=== PATIENT | male | born 1975 | race Caucasian/White ===

== ENCOUNTER 2021-08-22 16:13 | Inpatient (IN) | payer OTHER ==
[~2021-08-22] VITALS: Ht 195.6 cm; Wt 143.7 kg
[~2021-08-22 16:13] MED LIST: Advil200 M1 PO; Cleocin HCl300 MG PO; HYDR1TAB94 PO; LISI20 PO; Lopressor 50 mg50 MG PO
[2021-08-22 16:54] LABS: BASOPHILS ABSOLUTE AUTO 0.01 K/mm3 (0.00-0.23); BASOPHILS PERCENT AUTO 0 % (0-2); EOSINOPHILS ABSOLUTE AUTO 0.06 K/mm3 (0.00-0.68); EOSINOPHILS PERCENT AUTO 1 % (0-6); Hematocrit 44.5 % (37.0-53.0); Hemoglobin 14.2 g/dL (13.5-17.5); IMMATURE GRAN ABSOLUTE AUTO 0.02 K/mm3 (0.00-0.10); IMMATURE GRAN PERCENT AUTO 0 % (0-1); LYMPHOCYTES ABSOLUTE AUTO 1.74 K/mm3 (0.84-5.20); LYMPHOCYTES PERCENT AUTO 21 % (21-46); MONOCYTES ABSOLUTE AUTO 0.49 K/mm3 (0.16-1.47); MONOCYTES PERCENT AUTO 6 % (4-13); Mean Corpuscular HGB 29.6 pg (26.0-34.0); Mean Corpuscular HGB Conc 31.9 g/dL (31.5-36.5); Mean Corpuscular Volume 93 fL (80-100); Mean Platelet Volume 10.1 fL (9.1-12.4); NEUTROPHILS ABSOLUTE AUTO 6.07 K/mm3 (1.96-9.15); NEUTROPHILS PERCENT AUTO 73 % (41-73); Platelet Count 207 K/mm3 (150-400); RDW Standard Deviation 51.7 fL (35.1-46.3); Red Blood Cell Count 4.79 M/mm3 (4.30-5.90); White Blood Cell Count 8.39 K/mm3 (4.00-11.30)
[2021-08-22] MEDS ORDERED: LISI20 PO (17:08)
[2021-08-22] MEDS ORDERED: AMLO5 PO (17:08)
[2021-08-22 17:30] LABS: Anion Gap 5 mmol/L (6-16); Blood Urea Nitrogen 15 mg/dL (8-24); CO2, Blood 28 mmol/L (21-32); Chloride, Blood 109 mmol/L (98-108); Glucose, Blood 123 mg/dL (70-99); Potassium, Blood 3.8 mmol/L (3.5-5.5); Sodium, Blood 142 mmol/L (136-145)
[2021-08-22 17:31] LABS: Alanine Aminotransfer (ALT/SGP 54 U/L (12-78); Albumin, Blood 3.7 g/dL (3.4-5.0); Alk Phos 78 U/L (50-136); Aspartate Aminotrans (AST/SGOT 36 U/L (12-37); Bilirubin, Total 1.3 mg/dL (0.1-1.0); Bun/Creatinine Ratio 12.9 (12.0-20.0); Calcium, Blood 9.5 mg/dL (8.5-10.1); Creatinine, Blood 1.16 mg/dL (0.60-1.20); Globulin, Blood 3.7 g/dL (2.2-4.0); Glomerular Filtration Rate >60 (60-); Total Protein, Blood 7.4 g/dL (6.4-8.2)
[2021-08-22 17:32] LABS: Troponin I 0.142 ng/mL (0.000-0.040)
[2021-08-22 20:03] LABS: International Normalized Ratio 1.08; Prothrombin Time Results 11.3 Sec (9.7-11.5)
[2021-08-22 20:44] LABS: SARS-Cov-2 (COVID-19) PCR, MMC Positive (NEGATIVE)
[2021-08-23 01:17] LABS: Troponin I 0.085 ng/mL (0.000-0.040)
[2021-08-23 04:18] LABS: BASOPHILS ABSOLUTE AUTO 0.01 K/mm3 (0.00-0.23); BASOPHILS PERCENT AUTO 0 % (0-2); EOSINOPHILS ABSOLUTE AUTO 0.12 K/mm3 (0.00-0.68); EOSINOPHILS PERCENT AUTO 2 % (0-6); Hematocrit 41.4 % (37.0-53.0); Hemoglobin 13.2 g/dL (13.5-17.5); IMMATURE GRAN ABSOLUTE AUTO 0.01 K/mm3 (0.00-0.10); IMMATURE GRAN PERCENT AUTO 0 % (0-1); LYMPHOCYTES ABSOLUTE AUTO 1.52 K/mm3 (0.84-5.20); LYMPHOCYTES PERCENT AUTO 29 % (21-46); MONOCYTES ABSOLUTE AUTO 0.44 K/mm3 (0.16-1.47); MONOCYTES PERCENT AUTO 8 % (4-13); Mean Corpuscular HGB 29.9 pg (26.0-34.0); Mean Corpuscular HGB Conc 31.9 g/dL (31.5-36.5); Mean Corpuscular Volume 94 fL (80-100); Mean Platelet Volume 11.4 fL (9.1-12.4); NEUTROPHILS ABSOLUTE AUTO 3.22 K/mm3 (1.96-9.15); NEUTROPHILS PERCENT AUTO 60 % (41-73); Platelet Count 146 K/mm3 (150-400); RDW Coefficient Variation 15.1 % (11.7-14.2); RDW Standard Deviation 52.9 fL (35.1-46.3); Red Blood Cell Count 4.42 M/mm3 (4.30-5.90); White Blood Cell Count 5.32 K/mm3 (4.00-11.30)
[2021-08-23 05:18] LABS: Alanine Aminotransfer (ALT/SGP 53 U/L (12-78); Albumin, Blood 3.2 g/dL (3.4-5.0); Albumin/Globulin Ratio 0.9 (0.8-1.8); Alk Phos 71 U/L (50-136); Anion Gap 6 mmol/L (6-16); Aspartate Aminotrans (AST/SGOT 41 U/L (12-37); Bilirubin, Total 0.9 mg/dL (0.1-1.0); Blood Urea Nitrogen 16 mg/dL (8-24); Bun/Creatinine Ratio 15.7 (12.0-20.0); CO2, Blood 26 mmol/L (21-32); Calcium, Blood 9.4 mg/dL (8.5-10.1); Chloride, Blood 109 mmol/L (98-108); Creatinine, Blood 1.02 mg/dL (0.60-1.20); Globulin, Blood 3.5 g/dL (2.2-4.0); Glomerular Filtration Rate >60 (60-); Glucose, Blood 90 mg/dL (70-99); Potassium, Blood 4.1 mmol/L (3.5-5.5); Sodium, Blood 141 mmol/L (136-145); Total Protein, Blood 6.7 g/dL (6.4-8.2)
--- NOTE | 2021-08-23 07:38 | NUR ---
SHIFT SUMMARY PATIENT IS RESTING IN BED COMFORTABLY. BED IS IN LOW POSITION. CALL LIGHT IS IN REACH THE PATIENT WAS A NEW ADMIT TO THE FLOOR. HE WAS ORIENTED TO THE FLOOW AND STAFF. NO ACUTE CHANGES DURING THE SHIFT. THE PATIENT IS STILL AFIB HEART RATE WAS RANGING FROM 100-130 BPM. NO COMPLAINTS OF PAIN. BLOOD PRESSURE WAS ELEVATED BUT TRENDED DOWN THEN WHEN BACK UP THIS MORINING. DAY SHIFT RN MADE AWARE AND SCHEDUALED BP MEDS ARE DUE THIS MORNING. PATIENT IS CURRENTLY ON HEPARINE AT 15 UNITS/KG/HR ON A FIXED WEIGHT RUNNING AT 33 ML/HR. PATIENT IS ABLE TO AMBULATE TO THE BATHROOM WITH ASSISTANCE AND ABLE TO TOLERATE WALKING TO THE BATHROOM. WILL CONTINUE TO MONITOR. REPORT WAS GIVEN TO DAY SHIFT RN.
[2021-08-23 09:34] LABS: Troponin I 0.069 ng/mL (0.000-0.040)
--- NOTE | 2021-08-23 17:43 | NUR ---
SHIFT SUMMARY PT HAS RESTED IN BED FOR THE MAJORITY OF THE DAY. PT AMBULATED VIA STAND-BY ASSIST TO THE RESTROOM MULTIPLE TIMES. PT IS ABLE TO REPOSITION SELF INDEPENDENTLY FOR COMFORT AND PRESSURE RELIEF. HEART RATE HAS RANGED FROM 90'S-130'S ON MONITOR. BLOOD PRESSURES HAVE RANGED 146-159/106-116. PT HAS MAINTAINED SPO2 >90% ON ROOM AIR. AFEBRILE. PT IS ALERT AND ORIENTED AND CALLS APPROPRIATELY. NO ACUTE CHANGES IN CONDITION.
[2021-08-24 05:13] LABS: Hematocrit 41.6 % (37.0-53.0); Hemoglobin 13.3 g/dL (13.5-17.5)
[2021-08-24 05:42] LABS: Alanine Aminotransfer (ALT/SGP 54 U/L (12-78); Albumin, Blood 3.1 g/dL (3.4-5.0); Albumin/Globulin Ratio 0.9 (0.8-1.8); Alk Phos 68 U/L (50-136); Anion Gap 5 mmol/L (6-16); Aspartate Aminotrans (AST/SGOT 36 U/L (12-37); Bilirubin, Total 0.7 mg/dL (0.1-1.0); Blood Urea Nitrogen 15 mg/dL (8-24); Bun/Creatinine Ratio 15.9 (12.0-20.0); CO2, Blood 27 mmol/L (21-32); Calcium, Blood 8.9 mg/dL (8.5-10.1); Chloride, Blood 108 mmol/L (98-108); Creatinine, Blood 0.94 mg/dL (0.60-1.20); Free Thyroxine 1.16 ng/dL (0.70-1.60); Globulin, Blood 3.5 g/dL (2.2-4.0); Glomerular Filtration Rate >60 (60-); Glucose, Blood 98 mg/dL (70-99); Potassium, Blood 3.9 mmol/L (3.5-5.5); Sodium, Blood 140 mmol/L (136-145); Total Protein, Blood 6.6 g/dL (6.4-8.2)
--- NOTE | 2021-08-24 07:45 | NUR ---
SHIFT SUMMARY PATIENT IS RESTING IN BED COMFORTABLY. BED IS IN LOW POSITION. CALL LIGHT IS IN REACH. THE PATIENT IS STILL AFIB HEART RATE WAS RANGING FROM 90-120 BPM. NO COMPLAINTS OF PAIN. BLOOD PRESSURE WAS ELEVATED THIS MORNING AND DR SCHILLING WAS NOTIFIED AND PRN HYDRALAZINE WAS ORDERED. PATIENT IS CURRENTLY ON HEPARIN AT 17 UNITS/KG/HR ON A FIXED WEIGHT RUNNING AT 37.4ML/HR. PATIENT IS ABLE TO AMBULATE TO THE BATHROOM WITH ASSISTANCE AND ABLE TO TOLERATE WALKING TO THE BATHROOM. NO COMPLAINTS OF PAIN AND NO ACUTE CHANGES DURING THE SHIFT. WILL CONTINUE TO MONITOR. REPORT WAS GIVEN TO DAY SHIFT RN.
[2021-08-24] MEDS ORDERED: XARELTO20 MG PO (16:14)
[2021-08-24] MEDS ORDERED: METO25 PO (16:14)
--- NOTE | 2021-08-24 16:45 | NUR ---
PT DISCHARGING TODAY PT REMAINS AFIB HR RANGING 80-110'S, TO START DOSE OF XARELTO TONIGHT, WILL GIVE ONE TIME DOSE FOR TONIGHT PHARMACY WONT COVER AND NEEDS PRIOR AUTHORIZATION BEFORE FILLING PRESCRIPTIONS. PT HAD TYLENOL X1 FOR THE SHIFT FOR HEAD ACHE AND WAS EFFECTIVE. REMAINS ON ROOMAIR, BP SYSTOLIC 140'S AFEBRILE. AMBULATES TO THE BATHROOM. NO OTHER ISSUES REPORTED.
--- NOTE | 2021-08-24 17:16 | NUR ---
PT DISCHARGED HOME WITH ALL BELONINGS. IVs REMOVED AND DISCHARGE EDUCATION, FOLLOW UP APPOINTMENT, AND MEDICATION LIST REVIEWED. PT VERBALIZES UNDERSTANDING AND HAS NO QUESTIONS AT THIS TIME. PT PROVIDED WITH XARELTO INFORMATION FOR POTENTIAL SAVINGS. NO OTHER DISCHARGE NEEDS IDENTIFIED AT THIS TIME.
== END 2021-08-24 17:17 | disposition home or self-care (01) | DRG 308 ==
LOC: ER 16:13 → ERHOLD 16:14 → PCU 16:14 → ERHOLD 16:14 → PCU 21:22
PROVIDERS: Emergency Medicine; Family Medicine; Physician Assistant; ADMIT Internal Medicine
DX: I48.91 Unspecified atrial fibrillation (principal); U07.1 COVID-19; E66.9 Obesity, unspecified; I11.0 Hypertensive heart disease with heart failure; I50.9 Heart failure, unspecified; Z68.35 Body mass index [BMI] 35.0-35.9, adult; Z91.14 Patient's other noncompliance with medication regimen; Z79.899 Other long term (current) drug therapy; Z28.21 Immunization not carried out because of patient refusal
CPT/HCPCS: 36415; 71046; 80053; 82550; 83735; 83880; 84439; 84443; 84484; 85014; 85018; 85025; 85520; 85610; 93005; 93010; 96374; 96375; 96376; 99285-25; A9270; C8929; G0378; J0360; J1160; J1644; Q9957; U0004

== ENCOUNTER 2021-09-13 09:19 | Inpatient (IN) | payer OTHER ==
[~2021-09-13] VITALS: Ht 195.6 cm; Wt 136.9 kg
[~2021-09-13 09:19] MED LIST changes: +AMLO5 PO; +METO25 PO; +XARELTO20 MG PO
[2021-09-13 10:03] LABS: BASOPHILS ABSOLUTE AUTO 0.02 K/mm3 (0.00-0.23); BASOPHILS PERCENT AUTO 0 % (0-2); EOSINOPHILS ABSOLUTE AUTO 0.08 K/mm3 (0.00-0.68); EOSINOPHILS PERCENT AUTO 1 % (0-6); Hematocrit 46.6 % (37.0-53.0); Hemoglobin 14.9 g/dL (13.5-17.5); IMMATURE GRAN ABSOLUTE AUTO 0.02 K/mm3 (0.00-0.10); IMMATURE GRAN PERCENT AUTO 0 % (0-1); LYMPHOCYTES ABSOLUTE AUTO 1.73 K/mm3 (0.84-5.20); LYMPHOCYTES PERCENT AUTO 22 % (21-46); MONOCYTES PERCENT AUTO 6 % (4-13); Mean Corpuscular HGB 30.2 pg (26.0-34.0); Mean Corpuscular Volume 94 fL (80-100); Mean Platelet Volume 10.6 fL (9.1-12.4); NEUTROPHILS ABSOLUTE AUTO 5.56 K/mm3 (1.96-9.15); NEUTROPHILS PERCENT AUTO 70 % (41-73); Platelet Count 211 K/mm3 (150-400); RDW Standard Deviation 48.9 fL (35.1-46.3); Red Blood Cell Count 4.94 M/mm3 (4.30-5.90); White Blood Cell Count 7.91 K/mm3 (4.00-11.30)
[2021-09-13 10:18] LABS: Alanine Aminotransfer (ALT/SGP 42 U/L (12-78); Albumin, Blood 3.3 g/dL (3.4-5.0); Albumin/Globulin Ratio 0.8 (0.8-1.8); Alk Phos 70 U/L (50-136); Anion Gap 5 mmol/L (6-16); Aspartate Aminotrans (AST/SGOT 36 U/L (12-37); Bilirubin, Direct 0.2 mg/dL (0.0-0.3); Bilirubin, Indirect 0.6 mg/dL (0.1-0.7); Bilirubin, Total 0.8 mg/dL (0.1-1.0); Blood Urea Nitrogen 21 mg/dL (8-24); Bun/Creatinine Ratio 19.6 (12.0-20.0); CO2, Blood 25 mmol/L (21-32); Calcium, Blood 8.1 mg/dL (8.5-10.1); Chloride, Blood 107 mmol/L (98-108); Creatinine, Blood 1.07 mg/dL (0.60-1.20); Glomerular Filtration Rate >60 (60-); Glucose, Blood 75 mg/dL (70-99); Magnesium, Blood 1.9 mg/dL (1.6-2.4); Potassium, Blood 4.5 mmol/L (3.5-5.5); Sodium, Blood 137 mmol/L (136-145); Total Protein, Blood 7.3 g/dL (6.4-8.2); Troponin I <0.015 ng/mL (0.000-0.040)
[2021-09-13 11:44] LABS: Influenza A, PCR NEGATIVE (NEGATIVE); Influenza B, PCR NEGATIVE (NEGATIVE); Resp Syncytial Virus, PCR NEGATIVE (NEGATIVE); SARS-Cov-2 (COVID-19) PCR, MMC NEGATIVE (NEGATIVE)
--- NOTE | 2021-09-13 18:14 | NUR ---
END OF SHIFT SUMMARY: PATIENT STILL IN AFIB, DENIES CHEST PAIN OR SOB AT REST, PATIENT HR INCREASES WITH EXERTION TO THE 160'S RECOVERS WITHIN 5-10 MINTUES, HAS BEEN RESTING AROUND 100. PATINET DENIED ANY DIZZINESS, BLOOD PRESSURE HAS BEEN FROM 130'S TO 150 SYSTOLIC AND 90 TO 110. PATIENT ASYMPTOMATIC AT THIS TIME, IS ON ANTICOUAGULANTS FROM THIS MORNING, DID NOT GIVE THIS PM DUE TO THIS. PATIENT HAS EDEMA +1 AT THE ANKLES, ALL PULSES PALPABLE. WILL CONTINUE TO MONITOR UNTIL SHIFT CHANGE.
[2021-09-14 05:09] LABS: Anion Gap 8 mmol/L (6-16); Blood Urea Nitrogen 22 mg/dL (8-24); Bun/Creatinine Ratio 20.2 (12.0-20.0); CO2, Blood 28 mmol/L (21-32); Chloride, Blood 109 mmol/L (98-108); Creatinine, Blood 1.09 mg/dL (0.60-1.20); Glomerular Filtration Rate >60 (60-); Glucose, Blood 102 mg/dL (70-99); Sodium, Blood 145 mmol/L (136-145)
--- NOTE | 2021-09-14 05:44 | NUR ---
SHIFT SUMMARY PATIENT FOUND TO BE A PLESANT MAN WHO IS A&OX4. NO CHEST PAIN OR DISCOMFORT NOTED ALL SHIFT. VSS. LITTLE HYPERTENSIVE BEFORE NIGHT TIME BP MEDS GIVEN. REMAINS AFIB ON THE MONITOR IN THE 80'S-100S AND UP TO 120'S WHEN UP IN ROOM. +1 BLE PITTING EDEMA. NO DIZZINESS OR PALPITATIONS UPON ASSESSMENT. TOLERATING REGULAR DIET WITHOUT ISSUE. UP IND IN ROOM AND TO BATHROOM. NO ISSUES VOIDING. NO ISSUES AT THIS TIME. WILL CONTINUE PLAN OF CARE UNTIL REPORT GIVEN TO JAMAL BREAUX.
--- NOTE | 2021-09-14 09:46 | NUR ---
UPDATE PHYSICIAN AT BEDSIDE THIS AM TO SEE PT. D/T PT TREMORS AND HR PT NOW BEDREST.
--- NOTE | 2021-09-14 10:15 | NUR ---
VASCULAR MANAGEMENT: PATIENT ARRIVED 09/13/2021 WITH IV PLACED IN RIGHT AC 20G. DOCUMENTING I DID NOT PLACE THIS IV.
[2021-09-14] MEDS ORDERED: METO50ER PO (16:43)
--- NOTE | 2021-09-14 17:04 | NUR ---
UPDATE ATTEMPTED TO WALK HAVE PT WALK T/O UNIT. HR INCREASED INTO 160'S. PT SYMPTOMATIC WITH SOB AND CHEST TIGHTNESS. PHYSICIAN NOTIFIED. PLAN FOR PT TO HAVE NEW METOPROLOL DOSE AND THEN DO EKG IN 30 MINUTES AFTER PT IS WALKED AROUND THE UNIT.
--- NOTE | 2021-09-14 18:43 | NUR ---
END OF SHIFT SUMMARY: PATIENT IS STILL EXPERIENCING AFIB ON ANTICOAGULANTS, HOSPITALIST CONSULTED ABOUT SEVERE SOB AND TIGHTNESS, HR160'S TO 150'S WITH ANY EXERTION . [address] SOTO OVER THE PHONE. PLEASE SEE PATIENT NPO AFTER MIDNIGHT, USES CALL LIGHT APPROPIRATELY, BP 130'S/100'S, PATIENT HAS GREAT INTAKE OF FLUIDS AND MEALS, NO EDEMA AT THIS TIME. RA, NO GI OR SKIN ISSUES AT THIS TIME.
--- NOTE | 2021-09-14 19:21 | NUR ---
UPDATE PHYSICIAN AT BEDSIDE THIS EVENING. 30 MIN AFTER PT HAD EVENING DOSE OF METOPROLOL PT WAS WALKED AROUND THE UNIT. HR REACHED 170, EKG DONE. PT SYMPTOMATIC WITH CHEST TIGHTNESS, FLUSHING OF THE FACE, SOB, FATIGUE AND DIZZINESS. PT TO BE NPO AT MIDNIGHT FOR POSSIBLE CARDIOVERSION IN AM. REPORT GIVEN TO NIGHTSHIFT RN.
--- NOTE | 2021-09-15 06:04 | NUR ---
SHIFT SUMMARY PATIENT A&OX4 AND PLESANT WITH CARE. VSS. AFIB ON THE MONITOR IN THE 90'S-LOW 100'S UP TO 120'S WITH EXERTION. NO CHEST PAIN OR PALPITATIONS WITH THIS.ELEVATED DIASTOLIC BP BUT HAS BEEN PATIENTS NORM SINCE ARRIVAL AND MD AWARE. ON RA. UP IND IN ROOM. MILD SYMPTOMS REMAIN WITH EXERTION INCLUDING CHEST TIGHTNESS AND SOB BUT EASILY RECOVERS. NO PAIN OR DISTRESS NOTED UPON ASSESSMENT. TOLERATING REG DIET AND WILL BE NPO AFTER MIDNIGHT FOR POSSIBLE CARDIOVERSION IN AM. VOIDING WELL IN BATHROOM AND UP IND IN ROOM. NO ACUTE CONCERNS AT THIS TIME. WILL CONTINUE PLAN OF CARE UNTIL REPORT GIVEN TO JAMAL BREAUX.
--- NOTE | 2021-09-15 07:22 | NUR ---
UPDATE EMBEDDED SYSTEMS DEVELOPER AT BEDSIDE. PLAN FOR A CARDIOVERSION BETWEEN [id number]. ORDERS PUT IN BY PHYSICIAN.
[2021-09-15 08:45] LABS: International Normalized Ratio 1.09; Prothrombin Time Results 11.4 Sec (9.7-11.5)
[2021-09-15 09:00] LABS: Anion Gap 6 mmol/L (6-16); Blood Urea Nitrogen 20 mg/dL (8-24); Bun/Creatinine Ratio 19.6 (12.0-20.0); CO2, Blood 31 mmol/L (21-32); Calcium, Blood 9.2 mg/dL (8.5-10.1); Chloride, Blood 106 mmol/L (98-108); Creatinine, Blood 1.02 mg/dL (0.60-1.20); Glomerular Filtration Rate >60 (60-); Glucose, Blood 97 mg/dL (70-99); Potassium, Blood 3.8 mmol/L (3.5-5.5); Sodium, Blood 143 mmol/L (136-145)
--- NOTE | 2021-09-15 11:35 | NUR ---
1045 room is set up and ready for ÓSCAR/possible cardioversion. anibal Del Real here. 1050 Dr. Tamez arrived to PCU 11. RNs Mariangel Harrell and Sona Cheema in room, as well as 3 nursing students. Consent on chart in room, verified pt's name and date of and procedure to be done today. 1054 RT Rebeca Clayton present, pt put on O2 n.c. Suction is at pt's head. Pt gargled 1055 Pt was given 2 sprays of hurricane at Dr. Tamez direction 1056 1 mg versed and 50 mg fentanyl administered 1059 1 mg Versed given, pt's eyes are still open, RR 16/min. 1101 1 mg versed given. RR 16 spo2 98% 1102 transducer introduced, pt gagging, unable to advance. 1103 25 mg fentanyl give, transducer reattempted, unable to advance due to pt gagging. 1104 1 mg versed given. 1105 transducer attempted to introduce 1106 attempted to introduce transducer 1110 RR 10-12 spo2 95%. Conklin aborted; Dr Tamez got call from ED physician that there was a possible STEMI in the ED. Pt in recovery in PCU 11. 1120 pt is groggy, but arousable. Explained that procedure had to be cancelled due to emergency that international logistics analyst needed to go to in ED. 1130 Pt is awake, sleepy, and asking questions.
--- NOTE | 2021-09-15 11:40 | NUR ---
CARDIOVERSION/ÓSCAR ATTEMPT AT BEDSIDE WITH STEAM OVEN OPERATOR, ELECTRIC METER SETTER, RT, CRIMINOLOGY PROFESSOR AND RN STUDENTS. PT MEDICATED FOR MODERATE SEDATION, SEE EMAR. DURING ATTEMPT VSS. PT PLACED ON OXYGENAT 2 L TO MAINTAIN O2 SATURATIONS ABOVE 94%. DURING ATTEMPT STEAM OVEN OPERATOR CALLED INTO ED FOR EMERGENCY. WILL CONT TO MONITOR PT. PT'S UPDATED.
--- NOTE | 2021-09-15 18:47 | NUR ---
SHIFT SUMMARY PT ALERT AND ORIENTED X 4. IND IN ROOM. VITAL SIGNS STABLE. BP STABLE. NO CP. PT REPORTS CHEST PRESSURE WITH AMBULATION, PHYSICIAN AWARE. CARDIOLOGY ATTEMPTED TO PERFORM CARDIOVERSION W/ÓSCAR TWICE 09/15. WOMEN'S BASKETBALL COACH AND FLOAT RN IN ROOMD DURING SECOND PROCEDURE. VITAL SIGNS STABLE DURING PROCEDURE ATTEMPT. D/T DIFFICULTY WITH SEDATION PT TO HAVE PROCEDURE TOMORROW 09/16 IN HC. AT BEDSIDE AND UPDATED DURING SHIFT. PT TO BE NPO AT MIDNIGHT. OXYGEN SATURATION MAINTAINED ABOVE 92% ON RA.WILL CONT TO MONITOR UNTIL REPORT GIVEN TO NIGHTSHIFT RN.
--- NOTE | 2021-09-16 04:21 | NUR ---
PATIENT ALERT AND ORIENTATED ABLE TO MAKE NEEDS KNOWN, CALLS APPROPRIATELY, NOTHING BY MOUTHE SINCE MIDNIGHT AWAITING PROCEDURES SCHEDULED ÓSCAR THIS MORNING, NO COMPLAINTS OF PAIN, HR RANGING 61-130'S THIS EVENING AFIB, BLOOD PRESSURE BEEN STABLE WITH ELEVATED DIASTOLIC> 90, WILL CONTINUE TO MONITOR
--- NOTE | 2021-09-16 16:10 | NUR ---
TAKEN BY [facility] RN FOR ÓSCAR WITH ANESTHESIA.
--- NOTE | 2021-09-16 16:25 | NUR ---
PATIENT BROUGHT TO THE PROCEDURE ROOM FOR AN INPATIENT ÓSCAR/DCCV. DR. SU PRESENT.
--- NOTE | 2021-09-16 17:00 | NUR ---
UNABLE TO INSERT ÓSCAR PROBE WITH ANESTHESIA IN USE. PROCEDURE ABORTED. PATIENT AWAKE AND CONTINUE TO MONITOR. VVS. NO PAIN NOTED. WILL RETURN TO ROOM. REPORT CALLED TO RN. AMIODARONE BOLUS AND GTT ORDERED AND OBTAINED FROM THE PHARMACY AND REVEIWED WITH THE BEDSIDE RN.
--- NOTE | 2021-09-16 18:15 | NUR ---
SHIFT SUMMARY; ASSUMED CARE AT 0700, REPORT FROM BRANDAN. A/Mahad/JOSE DURING SHIFT. DENIES CP OR SOB. INDEPENDANT IN ROOM, AFIB DURING SHIFT WITH RATE 90-120'S. RATE INCREASES WITH AMBULATION. BED CHANGE TODAY, TAKEN TO LAWNMOWER MECHANIC FOR ÓSCAR WITH PROPOFOL. RETURNED AT APPROX 1700, UNSUCCESSFUL ÓSCAR, PLAN TO RESCHEDULE FOR TOMORROW WITH O.R. WITH INTUBATION FOR REATTEMPT ÓSCAR. NPO AFTER MIDNIGHT. WILL CONTINUE TO MONITOR AND TREAT UNTIL CHANGE OF SHIFT.
--- NOTE | 2021-09-17 03:10 | NUR ---
NOTED RLE NO PULSES WITH DOPPLER, DR. SAENZ AWARE, NO ORDERS AT THIS TIME AND CONTINUE TO MONITOR.
[2021-09-17 04:34] LABS: Anion Gap 5 mmol/L (6-16); Blood Urea Nitrogen 16 mg/dL (8-24); Bun/Creatinine Ratio 15.4 (12.0-20.0); CO2, Blood 31 mmol/L (21-32); Chloride, Blood 106 mmol/L (98-108); Creatinine, Blood 1.04 mg/dL (0.60-1.20); Glomerular Filtration Rate >60 (60-); Glucose, Blood 97 mg/dL (70-99); Potassium, Blood 4.1 mmol/L (3.5-5.5); Sodium, Blood 142 mmol/L (136-145)
--- NOTE | 2021-09-17 05:45 | NUR ---
PATIENT HAD NO ACUTE CHANGES OVERNIGHT AMIO GTT RUNNING, DECREASED BY 1/2 AT 2345 VITALS REMAINED STABLE THROUGHOUT NIGHT.
--- NOTE | 2021-09-17 18:15 | NUR ---
VSS. AFEBRILE. NO C/O PAIN. AUO. NO BM. DIET ADVANCED. ÓSCAR COMPLETED- SEE NOTES, REMAINS IN SR, AMIO GTT DC'D. TENTATIVE ECHO AND EKG SCHEDULED 09/18, WITH POSSIBLE D/C HOME. FREQUENT ROUNDS TO ENSURE PT SAFETY. PT IN NO APPARENT DISTRESS AT THIS TIME. WILL CONTINUE TO MONITOR UNTIL TRANSFER OF CARE TO ONCOMING RN.
--- NOTE | 2021-09-17 18:19 | NUR ---
09/17/211818 Willy Solomon PATIENT INTUBATED IN OR 4 FOR ÓSCAR WITH CITY COMPTROLLER, ANESTHESIOLOGIST DR SHAY. DR CLEMONS CONSULTED TO PERFORM EGD DUE TO DIFFICULTY PASSING ÓSCAR SCOPE. SCOPE CREW CALLED TO TO ASSIST DR CLEMONS.
--- NOTE | 2021-09-18 04:30 | NUR ---
PATIENT ALERT AND ORIENTATED, NO EVENTS OVERNIGHT, NO COMPLAINS OF PAIN, TELEMETRY NOTED 11 BEATS OF VTACH TONIGHT, INFORMATION IS IN THE CHART.
--- NOTE | 2021-09-18 12:31 | NUR ---
ASSUMED CARE NOTE: ASSUMED CARE OF PT AT 1135, BED SIDE REPORT GIVE, PT TRANSFERED TO ICU FROM PCU 11. PT ALERT AND ORIENTEDX3. PT DENIES CP, DIZZINESS. PT HAVING FREQUENT PVC'S. ISOPRO DRIP STARTED, PT ON DOWEL STICKER OPERATOR. AT BEDSIDE, ISOPRO DRIP TITRATED TO MAX DOSE 20MCG/MIN, GOAL HR 110-150, PER . WILL REMAIN ON THIS DRIP FOR 24 HOURS. CURRENT HR 127, QTc 0.53. LESS PVC'S NOTED SINCE ISOPRO WAS INITIATED. PT IS ASYMPTOMATIC.SBP 140'S. PT SITTING UP HAVING LUNCH AT THIS TIME.
--- NOTE | 2021-09-18 15:30 | NUR ---
CALLED REGARDING HR, CURRENT HR BETWEEN 80-90, ON 20MCG/MIN OF ISUPREL, UNABLE TO HIT TARGET RATE OF 110-150. ORDERS GIVEN TO START MAG DRIP AT 3MG/MIN, AND START EPI DRIP. AT BEDSIDE, ORDERS TO HOLD MAG DRIP AND EPI DRIP . MAG DRIP WILL BE RESTARTED POST TEMP PACEMAKER PLACEMENT. ORDERS TO TITRATE ISUPREL DRIP TO 25MCG/MIN.
[2021-09-18 15:41] LABS: Digoxin (Lanoxin) 0.44 ug/mL (0.80-2.00)
--- NOTE | 2021-09-18 17:45 | NUR ---
UPDATE/SHIFT SUMMARY: SEE PREVIOUS NOTES PT REAMAINS ALERT AND ORIENTEDX3. PT HAS DENIED CHEST PAIN T/O SHIFT. PT TAKEN TO TIMEKEEPER FOR TEMP PACEMAKER AT 1554, RETURNED TO THE ICU AT 1653. TEMP PACEMAKER RATE 120, mA 5, SENSE 4. ORDERED FOR PT TO BE PLACED ON MAG DRIP WILL RECHECK MAG AT 1800. IF PT'S OWN RATE TAKES OVER PACER RATE, NURSING STAFF IS TO OVERRIDE HIS RATE SO THAT HE REMAINS 100% RATE, AND CONTACT . PT IS CURRENTLY 100% PACED, RATE 120, CAPTURE OBTAINED ON MONITOR. PT PLACED ON 2L OF 02 VIA NC DUE TO PT DESATURATING TO 87% WHILE SLEEPING. PT STATES HE WAS TOLD HE NEEDED A SLEEP STUDY IN THE PAST, HOWEVER WAS UNABLE TO GET IT DURING COVID. PT DENIES ANY SOB, PAIN. PT BP HAS REMAINS STABLE. PT USING URINAL AT BEDSIDE 600ML FRANCIE COLORED URINE NOTED. PT ATE 100% OF LUNCH, DECLINED DINNER. WILL CONTINUE TO MONITOR PT UNTIL REPORT IS GIVEN TO ONCOMING SHIFT.
--- NOTE | 2021-09-18 18:14 | NUR ---
RATE CHANGED TO 110 PER , SENSE 7.0, mA REMAINS AT 5, CAPTURE OBTAINED 110 CURRENT RATE
--- NOTE | 2021-09-18 19:30 | NUR ---
ASSUMED CARE PATIENT LYING IN BED AWAKE AND ALERT WATCHING TELEVISION. GREETS STAFF UPON ENTERING ROOM. TRANSVENOUS PACER SET TO RATE 110, mA OF 5, SENSITIVITY OF 7; 100% VENTRICULARLY PACED. MAG SULFATE @ 3MCG/MIN AND NS TKO INF TO DEEPIKA POWERGLIDE. REUBEN POWERGLIDE SALINE LOCKED. URINAL AND CELL PHONE ON BEDSIDE TABLE. BEDSIDE REPORT COMPLETED W/ JAMAL BREAUX.
--- NOTE | 2021-09-18 19:45 | NUR ---
MAG RESULT MAG RESULT OF 2.5 RECIEVED. CALLED AND REPORTED RESULT TO DR. SU; ORDERS OBTAINED FOR REPEAT MAG LAB @ 2200 AND AM LABS CONSISTING OF MAG, CBC, AND BMP.
--- NOTE | 2021-09-18 22:54 | NUR ---
MAG 2.6/ PACER SETTINGS MAG RESULT OF 2.[address] SU. NO NEW ORDERS GIVEN. VERIFIED PACER SETTINGS W/ DR. SU AND NOTIFIED HIM OF EXTRA PACING SPIKES W/ NO SUBSEQUENT QRS. ORDERS OBTAINED TO TURN SENSITIVITY DOWN TO 4 FROM 7. RATE 110 AND OUTPUT 5 REMAINS THE SAME. PATIENT IS STILL 100% PACED.
--- NOTE | 2021-09-19 01:41 | NUR ---
APNEIC PERIODS DURING SLEEP WHILE SLEEPING THE PATIENT EXPERIENCED PERIODIC EPISODES OF APNEA. SPO2 WOULD DROP TO MID 80'S THEN RETURN TO MID TO HIGH 90'S. ACCORDING TO PATIENT THIS HAPPENS AT BASELINE WELL AND IS AWAITING FOR A SLEEP STUDY TO BE ORDERED. O2 VIA NC INCREASED TO 4.5LPM.
[2021-09-19 03:50] LABS: BASOPHILS ABSOLUTE AUTO 0.01 K/mm3 (0.00-0.23); BASOPHILS PERCENT AUTO 0 % (0-2); EOSINOPHILS ABSOLUTE AUTO 0.04 K/mm3 (0.00-0.68); EOSINOPHILS PERCENT AUTO 0 % (0-6); Hematocrit 41.6 % (37.0-53.0); Hemoglobin 13.5 g/dL (13.5-17.5); IMMATURE GRAN ABSOLUTE AUTO 0.03 K/mm3 (0.00-0.10); IMMATURE GRAN PERCENT AUTO 0 % (0-1); LYMPHOCYTES ABSOLUTE AUTO 1.47 K/mm3 (0.84-5.20); LYMPHOCYTES PERCENT AUTO 15 % (21-46); MONOCYTES ABSOLUTE AUTO 0.67 K/mm3 (0.16-1.47); MONOCYTES PERCENT AUTO 7 % (4-13); Mean Corpuscular HGB 29.6 pg (26.0-34.0); Mean Corpuscular HGB Conc 32.5 g/dL (31.5-36.5); Mean Corpuscular Volume 91 fL (80-100); Mean Platelet Volume 9.6 fL (9.1-12.4); NEUTROPHILS ABSOLUTE AUTO 7.52 K/mm3 (1.96-9.15); NEUTROPHILS PERCENT AUTO 77 % (41-73); Platelet Count 195 K/mm3 (150-400); RDW Coefficient Variation 13.7 % (11.7-14.2); RDW Standard Deviation 46.7 fL (35.1-46.3); Red Blood Cell Count 4.56 M/mm3 (4.30-5.90); White Blood Cell Count 9.74 K/mm3 (4.00-11.30)
[2021-09-19 04:21] LABS: Anion Gap 4 mmol/L (6-16); Blood Urea Nitrogen 14 mg/dL (8-24); Bun/Creatinine Ratio 14.4 (12.0-20.0); CO2, Blood 32 mmol/L (21-32); Calcium, Blood 8.6 mg/dL (8.5-10.1); Chloride, Blood 107 mmol/L (98-108); Creatinine, Blood 0.97 mg/dL (0.60-1.20); Glomerular Filtration Rate >60 (60-); Glucose, Blood 103 mg/dL (70-99); Magnesium, Blood 2.4 mg/dL (1.6-2.4); Potassium, Blood 3.8 mmol/L (3.5-5.5); Sodium, Blood 143 mmol/L (136-145)
--- NOTE | 2021-09-19 06:04 | NUR ---
SHIFT SUMMARY PATIENT HAD ABNORMAL CAPTURING OF PACEMAKER AT BEGINNING OF SHIFT W/ ACTIVITY. CALL MADE TO DR. SU AND TURNED SENSITIVITY DOWN TO 4 FROM 7. AFTER THIS ADJUSTMENT TRANSVENOUS PACER CAPTURED APPROPRIATELY W/ 100% PACING AND NO ECTOPIC BEATS. MAGNESIUM STILL INF @ 3MCG/MIN AND NS TKO INTO DEEPIKA POWERGLIDE; REUBEN POWERGLIDE SALINE LOCKED. DISCUSSED PACER PARAMETERS W/ DR. SU; SEE NURSE NOTE AND NURSE NOTIFY. NO OTHER MAJOR CHANGES DURING SHIFT.
--- NOTE | 2021-09-19 09:20 | NUR ---
ASSUMED CARE / DR SU: REPORT RECEIVED FROM IESHA Gregorio & MISAEL W, RNs. ASSUMED CARE OF THIS PT AT APPROX 0700. ON ASSESSMENT, THE PT IS AWAKE, A&O TO ALL. DENIES PAIN. LS ARE DIM IN BASES, PT ON 2L NC W/ O2 SATS > 95%. MONITOR SHOWS 100% V-PACED RHYTHM W/ TV PACER IN PLACE TO [facility]. TV PACER SETTINGS: RATE 110, MA 5, SENSITIVITY 4. HTN PRIOR TO SCHEDULED AM MEDS. PT HAS NO GI COMPLAINTS, TOLERATING PO INTAKE WELL. VOIDS W/O DIFFICULTY USING URINAL INDEPENDENTLY. SKIN CONDITION OVERALL CDI, Q2H REPOSITIONING TO MAINTAIN SKIN INTEGRITY. DR SU AT BEDSIDE THIS AM TO EVAL PT. HE STS HE WOULD LIKE TO TURN OFF THE PACER & COMPLETED AN EKG TO SEE THE PT's UNDERLYING RHYTHM. THIS HAS BEEN COMPLETED & THE PT's UNDERLYING RHYTHM IS AFIB W/ HR 70-80s. TV PACING HAS BEEN RESUMED W/ PRIOR SETTINGS & THE PT IS TOLERATING WELL. DR SU WOULD LIKE TO ATTEMPT THIS AGAIN AT APPROX 1700 TONIGHT & HAS ADDED PT's HOME DOSE OF NORVASC TO START THIS AM FOR HTN MANAGEMENT. WILL CONTINUE TO MONITOR & UPDATE NEEDED.
--- NOTE | 2021-09-19 16:35 | NUR ---
DR SU: PROVIDER AT BEDSIDE THIS EVENING. EKG COMPLETED WHILE PROVIDER TURNS OFF TV PACER. EKG SHOWS PT IN AFIB W/ RVR, HR 117 BPM. QTc DECREASED TO 485 MS - SEE CHART. BASED ON THIS READING, THE PROVIDER HAS TURNED THE TV PACER RATE DOWN TO 30. ORDERS PLACED FOR METOPROLOL & PROVIDER WOULD LIKE ANOTHER EKG TO BE COMPLETED WHEN HE COMES TO SEE THE PT TOMORROW AM.
--- NOTE | 2021-09-19 17:20 | NUR ---
SHIFT SUMMARY: NO ACUTE CHANGES SINCE PRIOR UPDATES. PT STS FEELING "A LITTLE BETTER" W/ TV PACER RATE DECREASED. LS ARE DIM IN BASES, 2L NC IN USE W/ O2 SATS > 95%. MONITOR SHOWS AFIB W/ HR 80-100s, HTN IMPROVED THIS EVENING. PT HAS NO GI COMPLAINTS, IS TOLERATING PO INTAKE WELL. PT VOIDS USING URINAL W/O DIFFICULTY. SKIN CONDITION OVERALL CDI, PT REPOSITIONS SELF FOR COMFORT. TV PACER SITE TO [facility] IS WNL; NO REDNESS OR INFLAMMATION NOTED, DRESSING CDI. WILL CONTINUE TO MONITOR & REPORT OFF TO ONCOMING RN.
--- NOTE | 2021-09-19 19:30 | NUR ---
ASSUMED CARE PATIENT LYING IN BED AWAKE AND WATCHING TV. TRACKS TO SOUND AND GREETS STAFF UPON ENTERING ROOM. CELL PHONE AND URINAL ON BEDSIDE TABLE. TRANSVENOUS PACER TO RT IJ SET AT RATE 30, mA 5, SENSITIVITY 4; CURRENTLY IN AFIB W/ RATE 60'S-90'S. 3LPM VIA NC IN PLACE W/ SPO2 HIGH 90'S-100%. MAG SULFATE @ 3.5MCG/HR AND NS TKO INTO DEEPIKA POWERGLIDE; REUBEN POWERGLIDE SALINE LOCKED. REPORT COMPLETED W/ DAYSHIFT RN.
--- NOTE | 2021-09-20 06:37 | NUR ---
SHIFT SUMMARY NO MAJOR CHANGES DURING SHIFT. PATIENT BECAME TACHYCARDIC W/ RATE IN 120'S-130'S WHEN HE USES URINAL OR REPOSITIONS, OTHERWISE RATE STAYED 60'S-90'S W/ NO PACING. TV PACER SETTINGS STILL @ RATE 30, mA 5, SENSITIVITY 4. HTN COVERED W/ 1 DOSE HYDRALAZINE DURING SHIFT. PATIENT HAD 950ML OF URINE OUT, NO BM DURING SHIFT.
--- NOTE | 2021-09-20 07:21 | NUR ---
DR SU: PROVIDER AT BEDSIDE THIS AM TO EVAL PT. EKG COMPLETED & PLACED ON CHART. BASED ON THIS EKG READING & THE PT HAVING NO ARRHYTHMIAS THROUGH THE NIGHT, ASIDE FROM TACHYCARDIA W/ HR INCREASED TO 120s WHILE URINATING, HE HAS DECIDED TO TAKE THE TV PACER OUT. THE PLAN IS FOR THE SHEATH TO REMAIN IN PLACE & AFTER EKG AT NOON TODAY, THE SHEATH MAY BE PULLED THIS AFTERNOON AT PROVIDER DISCRETION. HE PLANS TO D/C THE MAGNESIUM DRIP & TX THE PT TO PCU STATUS ALSO. TV PACER TO RIJ REMOVED BY PROVIDER AT APPROX 0715. SHEATH REMAINS IN PLACE & THIS RN DRESSED SITE W/ TEGADERM CHG. VSS.
--- NOTE | 2021-09-20 07:30 | NUR ---
ASSUMED CARE: REPORT RECEIVED FROM IESHA Garza, RNs. ASSUMED CARE OF THIS PT AT APPROX 0700. ON ASSESSMENT, THE PT IS AWAKE, A&O TO ALL. HE DENIES PAIN CURRENTLY. LS DIM, PT ON RA W/ O2 SATS > 92%. MONITOR SHOWS AFIB W/ HR 80-100s ON AVG, INCREASED TO 120-130s W/ EXERTION. SHEATH REMAINS IN PLACE TO RIJ, DRESSING CDI. THE PT HAS NO GI COMPLAINTS & IS TOLERATING PO INTAKE WELL. HE VOIDS W/O DIFFICULTY USING THE URINAL. SKIN CONDITION OVERALL CDI & PT ABLE TO REPOSITION SELF FOR COMFORT, ASKS FOR ASSISTANCE APPROPRIATELY. WILL CONTINUE TO MONITOR & UPDATE NEEDED.
--- NOTE | 2021-09-20 18:36 | NUR ---
SHIFT SUMMARY / DR SU: PT REMAINS A&O, PLEASANT & COOPERATIVE W/ CARE. LS DIM IN BASES, PT ON RA T/O SHIFT W/ O2 SATS MAINTAINING > 92%. PT DENIES SOB. MONITOR SHOWS AFIB W/ HR 80-100s ON AVG, TACHYCARDIA UP TO 160s W/ EXERTION. NO GI COMPLAINTS, TOLERATING PO INTAKE WELL. VOIDS W/O DIFFICULTY USING THE URINAL INDEPENDENTLY. SKIN CONDITION OVERALL INTACT, PT REPOSITIONS SELF W/O DIFFICULTY FOR COMFORT. DR SU AT BEDSIDE THIS EVENING TO EVAL PT. HE STS HE WOULD LIKE TO DISCHARGE THE PT HOME. TACHYCARDIA W/ HR INCREASED TO 160-170s WHILE PT WORKING W/ PHYSICAL THERAPY HAS BEEN DISCUSSED. METOPROLOL SUCCINATE DOSE INCREASED TO 100 MG BID W/ FIRST DOSE GIVEN NOW. IF THE PT's HR IMPROVES & HE IS ABLE TO AMBULATE W/O UNCONTROLLED TACHYCARDIA, HE MAY STILL BE ABLE TO GO HOME TONIGHT. APPROX 20 MINS AFTER METOPROLOL GIVEN, PT's RESTING HR DECREASED TO 90-100 BPM. PT DANGLES AT BEDSIDE & IS ABLE TO AMBULATE W/O DIFFICULTY. HR INCREASED TO 130-160s AT THAT TIME. DR SU AT BEDSIDE DURING THIS TIME & STS TO GIVE THE MEDICATION APPROX 20 MORE MINUTES TO WORK. AT THAT TIME, AMBULATE THE PT AGAIN TO ASSESS FOR TACHYCARDIA. IF THE PT REMAINS TACHYCARDIC W/ EXERTION, THE PROVIDER PLANS TO ADD CARDIZEM TO HIS MEDICATIONS. IN THE MEANTIME, HE WOULD LIKE THE VENOUS SHEATH TO THE PT's RIJ TO BE REMOVED. DONYA Aggarwal RN & GRAYSON Rabago RN, AT BEDSIDE FOR SHEATH REMOVAL. THIS RN HAS UPDATED THE PT's DISCHARGE INTERVENTION W/ FOLLOW-UP APPOINTMENTS REQUESTED BY DR SU. ONCE DISCHARGE IS CONFIRMED, HOSPITALIST SERVICE WILL BE CONTACTED TO PLACE ORDERS. WILL CONTINUE TO MONITOR & REPORT OFF TO ONCOMING RN.
--- NOTE | 2021-09-20 19:38 | NUR ---
ASSUMED CARE PATIENT LYING IN BED AWAKE AND WATCHING TV. PATIENT SITTING AT BEDSIDE. CURRENTLY PATIENT IS ON ROOM AIR W/ SPO2 MID 90'S. RHYTHM A-FIB W/ RATE 90'S-120'S AT REST. BP HIGH 150'S/90'S-100'S. POWER GLIDE IN DALE UPPER ARMS SALINE LOCKED. URINAL AND CELL PHONE AT BEDSIDE. REPORT COMPLETED W/ DAYSHIFT NAMITA.
--- NOTE | 2021-09-20 20:40 | NUR ---
DOCTOR GEORGES GIVEN UPDATE ON PATIENTS HEART RATE. AT REST AFIB 84-90. WHEN UP TO TOILET FOR BM, AND AMBULATE IN ROOM HEART RATE UP TO 164, NO C/O CHEST PAIN WHEN UP. PLAN TO CONTINUE TO MONITOR T/O NIGHT.
--- NOTE | 2021-09-21 05:57 | NUR ---
SHIFT SUMMARY PATIENT SLEPT THROUGH MOST OF SHIFT. WHEN HE FELL ASLEEP HE HAD A PERIOD OF APNEA THAT HE HAS AT BASELINE, SPO2 DECREASED FROM MID TO HIGH 90'S TO MID 80'S ON ROOM AIR. 3LPM NC PLACED ON PATIENT W/ SPO2 INCREASED TO HIGH 90'S. CARDIZEM 120MG STARTED AT BEGINNING OF SHIFT; NOTIFIED DR. SU OF NO IMPROVEMENT IN EXERTIONAL HR-SEE NURSE NOTE. CARDIZEM INCREASED TO 180MG BID. DURING SHIFT RESTING HR 70'S-90'S; WITH WALKING TO TOILET INCREASED TO 170'S @ THE HIGHEST, USUALLY 140'S-160'S. TRANSVENOUS PACER REMOVAL SITE W/ OPSITE FREE OF BLEEDING AND HEMATOMA. SHEATH STILL IN PLACE. NO OTHER CHANGES DURING SHIFT.
--- NOTE | 2021-09-21 09:07 | NUR ---
pt ambulated about 30 min after cardizem, metoprolol and HR initially jumped to 150, but then sustained 100-110s mainly.
--- NOTE | 2021-09-21 10:04 | NUR ---
Pt ambulated again about 1.5hrs after AM cardizem and metoprolol. HR increased to 120-130 initailly when standing. After about 30 seconds remained between 100-110 when ambulating in room.
--- NOTE | 2021-09-21 12:29 | NUR ---
Pt ambulated in room again, sustained 100-110s with a few spikes to 120-130. At rest HR is 70-80s after sitting for 1 minute.
[2021-09-21] MEDS ORDERED: METO100ER PO (14:54)
[2021-09-21] MEDS ORDERED: DILT180 PO (14:58)
--- NOTE | 2021-09-21 16:09 | NUR ---
shift note/ d/c note: Pt is A&O and pleasant with cares. Tele: afib 70-80s at rest and 100-110s with activity. At times can jump to 120-130s briefly. D/c meds gone over in detail with pt. Meds faxed to [facility] in [place]. Bilateral powerglides removed. provided d/c ride.
== END 2021-09-21 16:29 | disposition home or self-care (01) | DRG 260 ==
LOC: ER 09:19 → PCU 09:20 → ERHOLD 09:20 → PCU 14:33 → ICUW 09-18 11:19
PROVIDERS: Family Medicine; Internal Medicine Cardiovascular Disease; Internal Medicine Gastroenterology; Nurse Practitioner Acute Care; Student in an Organized Health Care Education/Training Program; ADMIT Family Medicine
PROC: 0D718ZZ Dilation of Upper Esophagus, Via Natural or Artificial Opening Endoscopic (ICD-10-PCS; 2021-09-17 12:00)
PROC: 5A1223Z Performance of Cardiac Pacing, Continuous (ICD-10-PCS; principal; 2021-09-18)
PROC: 5A2204Z Restoration of Cardiac Rhythm, Single (ICD-10-PCS; 2021-09-18)
PROC: 02HK3JZ Insertion of Pacemaker Lead into Right Ventricle, Percutaneous Approach (ICD-10-PCS; 2021-09-18)
DX: I11.0 Hypertensive heart disease with heart failure (principal); I50.23 Acute on chronic systolic (congestive) heart failure; I48.20 Chronic atrial fibrillation, unspecified; I47.2 Ventricular tachycardia; I20.0 Unstable angina; I34.0 Nonrheumatic mitral (valve) insufficiency; Z20.822 Contact with and (suspected) exposure to COVID-19; E66.01 Morbid (severe) obesity due to excess calories; F17.290 Nicotine dependence, other tobacco product, uncomplicated; I42.8 Other cardiomyopathies; I47.9 Paroxysmal tachycardia, unspecified; Z91.14 Patient's other noncompliance with medication regimen; I45.81 Long QT syndrome; T44.7X5A Adverse effect of beta-adrenoreceptor antagonists, initial encounter; Z79.899 Other long term (current) drug therapy; Z68.35 Body mass index [BMI] 35.0-35.9, adult; K22.2 Esophageal obstruction
CPT/HCPCS: 0241U; 33210; 36415; 71046; 76937; 80048; 80076; 80162; 83735; 83880; 84443; 84484; 85025; 85610; 93005; 93010; 93312; 93325; 94660; 94760; 94762; 96365; 97110; 97162; 97166; 97530; 97535; 99152; 99153; 99285-25; A9270; C1751; C1769; C1894; C8929; G0378; J0282; J0360; J1100; J1160; J1644; J2250; J2405; J2704; J3010; J3475; J7030; J7040; J7050; J7060; J7120; Q9957

== ENCOUNTER → 2023-07-16 | Outpatient (CLI) | payer OTHER ==
[~2023-07-16] MED LIST changes: +DILT180 PO; +METO100ER PO; +METO50ER PO
[2023-07-16 20:12] LABS: Bun/Creatinine Ratio 17.3 (12.0-20.0); Calcium, Blood 9.8 mg/dL (8.5-10.1); Creatinine, Blood 1.04 mg/dL (0.60-1.20); Potassium, Blood 3.4 mmol/L (3.5-5.5)
== END | disposition home or self-care (01) ==
LOC: LAB 18:25 → LAB SHORT 18:25
PROVIDERS: Family Medicine
DX: I10 Essential (primary) hypertension (principal)
CPT/HCPCS: 80048

== ENCOUNTER 2023-09-12 09:34 | Emergency (ER) | payer OTHER ==
[~2023-09-12] VITALS: Ht 195.6 cm; Wt 136.1 kg
[2023-09-12 09:45] VITALS: BP 142/92
[2023-09-12] MEDS ORDERED: AMLODIPINE BESY10 MG PO (09:47)
[2023-09-12] MEDS ORDERED: LOSARTAN-HCTZ1 EAC5 PO (09:47)
[2023-09-12] MEDS ORDERED: Amiodarone HCl200 MG PO (09:47)
== END 2023-09-12 10:57 | disposition home or self-care (01) ==
LOC: ER 09:34
DX: S22.32XA Fracture of one rib, left side, initial encounter for closed fracture (principal); I11.0 Hypertensive heart disease with heart failure; I50.9 Heart failure, unspecified; I48.91 Unspecified atrial fibrillation; Z79.01 Long term (current) use of anticoagulants; Z79.899 Other long term (current) drug therapy; W00.0XXA Fall on same level due to ice and snow, initial encounter
CPT/HCPCS: 71101; 99283-25

== ENCOUNTER → 2023-10-19 | Outpatient (CLI) | payer OTHER ==
[~2023-10-19] MED LIST changes: +AMLODIPINE BESY10 MG PO; +Amiodarone HCl200 MG PO; +LOSARTAN-HCTZ1 EAC5 PO
[2023-10-22 19:07] LABS: CREATININE, SERUM 1.38 mg/dL (0.76-1.27); POTASSIUM, SERUM 3.5 mmol/L (3.5-5.2)
== END ==
LOC: LAB SHORT 19:03 → LAB 19:03
PROVIDERS: Family Medicine
DX: I10 Essential (primary) hypertension (principal)
CPT/HCPCS: 80048

== ENCOUNTER 2024-12-09 07:32 | Emergency (ER) | payer OTHER ==
[~2024-12-09] VITALS: Ht 193 cm; Wt 123.4 kg
[2024-12-09 08:22] LABS: BASOPHILS ABSOLUTE AUTO 0.03 K/mm3 (0.00-0.23); BASOPHILS PERCENT AUTO 1 % (0-2); EOSINOPHILS ABSOLUTE AUTO 0.16 K/mm3 (0.00-0.68); EOSINOPHILS PERCENT AUTO 3 % (0-6); Hematocrit 48.2 % (37.0-53.0); Hemoglobin 16.6 g/dL (13.5-17.5); IMMATURE GRAN ABSOLUTE AUTO 0.01 K/mm3 (0.00-0.10); IMMATURE GRAN PERCENT AUTO 0 % (0-1); LYMPHOCYTES ABSOLUTE AUTO 1.58 K/mm3 (0.84-5.20); LYMPHOCYTES PERCENT AUTO 27 % (21-46); MONOCYTES ABSOLUTE AUTO 0.49 K/mm3 (0.16-1.47); MONOCYTES PERCENT AUTO 8 % (4-13); Mean Corpuscular HGB 31.8 pg (26.0-34.0); Mean Corpuscular HGB Conc 34.4 g/dL (31.5-36.5); Mean Corpuscular Volume 92 fL (80-100); NEUTROPHILS ABSOLUTE AUTO 3.63 K/mm3 (1.96-9.15); NEUTROPHILS PERCENT AUTO 62 % (41-73); Platelet Count 210 K/mm3 (150-400); RDW Coefficient Variation 13.9 % (11.7-14.2); RDW Standard Deviation 47.1 fL (35.1-46.3); Red Blood Cell Count 5.22 M/mm3 (4.30-5.90)
[2024-12-09 08:48] LABS: Albumin, Blood 3.3 g/dL (3.4-5.0); Albumin/Globulin Ratio 0.9 (0.8-1.8); Bilirubin, Total 0.9 mg/dL (0.1-1.0); Bun/Creatinine Ratio 11.3 (12.0-20.0); Calcium, Blood 9.6 mg/dL (8.5-10.1); Creatinine, Blood 1.15 mg/dL (0.60-1.20); Globulin, Blood 3.7 g/dL (2.2-4.0); Potassium, Blood 3.7 mmol/L (3.5-5.5)
[2024-12-09] MEDS ORDERED: HYDPAM25 PO (09:43)
[2024-12-09 10:18] VITALS: BP 132/85
== END 2024-12-09 10:19 | disposition home or self-care (01) ==
LOC: ER 07:32
PROVIDERS: Emergency Medicine
DX: F41.0 Panic disorder [episodic paroxysmal anxiety] (principal); I10 Essential (primary) hypertension; I48.91 Unspecified atrial fibrillation; I50.9 Heart failure, unspecified
CPT/HCPCS: 71046; 80053; 84484; 85025; 93005; 93010; 99283-25

== ENCOUNTER 2025-01-09 09:56 | Emergency (ER) | payer OTHER ==
[~2025-01-09] VITALS: Ht 195.6 cm; Wt 122.5 kg
[~2025-01-09 09:56] MED LIST changes: +HYDPAM25 PO
[2025-01-09 10:43] VITALS: BP 114/84
[2025-01-09] MEDS ORDERED: Ketorolac Tromethamine 15mg Vial IM ONE (12:15)
== END 2025-01-09 13:16 | disposition home or self-care (01) ==
LOC: ER 09:56
DX: M17.11 Unilateral primary osteoarthritis, right knee (principal); M70.51 Other bursitis of knee, right knee; I48.91 Unspecified atrial fibrillation; I11.0 Hypertensive heart disease with heart failure; I50.9 Heart failure, unspecified; Z79.899 Other long term (current) drug therapy
CPT/HCPCS: 73562-RT; 96372; 99283-25; J1885

== ENCOUNTER → 2025-08-03 | Outpatient (CLI) | payer OTHER ==
[2025-08-03 19:47] LABS: BASOPHILS ABSOLUTE AUTO 0.01 K/mm3 (0.00-0.23); BASOPHILS PERCENT AUTO 0 % (0-2); EOSINOPHILS ABSOLUTE AUTO 0.01 K/mm3 (0.00-0.68); EOSINOPHILS PERCENT AUTO 0 % (0-6); Hematocrit 44.7 % (37.0-53.0); Hemoglobin 14.9 g/dL (13.5-17.5); IMMATURE GRAN ABSOLUTE AUTO 0.02 K/mm3 (0.00-0.10); IMMATURE GRAN PERCENT AUTO 0 % (0-1); LYMPHOCYTES ABSOLUTE AUTO 1.58 K/mm3 (0.84-5.20); LYMPHOCYTES PERCENT AUTO 22 % (21-46); MONOCYTES ABSOLUTE AUTO 0.52 K/mm3 (0.16-1.47); MONOCYTES PERCENT AUTO 7 % (4-13); Mean Corpuscular HGB Conc 33.3 g/dL (31.5-36.5); Mean Corpuscular Volume 106 fL (80-100); NEUTROPHILS ABSOLUTE AUTO 5.08 K/mm3 (1.96-9.15); NEUTROPHILS PERCENT AUTO 70 % (41-73); NRBC ABSOLUTE 0.00 K/mm3 (0.00-0.02); NRBC Auto 0.0 /100 WBC (0.0-0.2); Platelet Count 215 K/mm3 (150-400); RDW Coefficient Variation 17.0 % (11.7-14.2); RDW Standard Deviation 67.3 fL (35.1-46.3)
[2025-08-03 19:56] LABS: Prothrombin Time Results 12.7 Sec (9.7-11.5)
[2025-08-03 20:14] LABS: Alanine Aminotransfer (ALT/SGP 16.0 U/L (12-78); Albumin, Blood 3.4 g/dL (3.4-5.0); Albumin/Globulin Ratio 1.0 (0.8-1.8); Anion Gap 8.0 mmol/L (3-11); Aspartate Aminotrans (AST/SGOT 18.0 U/L (12-37); Bilirubin, Total 0.9 mg/dL (0.1-1.0); Blood Urea Nitrogen 17.0 mg/dL (8-24); CO2, Blood 32.0 mmol/L (21-32); Calcium, Blood 9.7 mg/dL (8.5-10.1); Chloride, Blood 103.0 mmol/L (98-108); Creatinine, Blood 0.95 mg/dL (0.60-1.20); Globulin, Blood 3.4 g/dL (2.2-4.0); Glucose, Blood 111.0 mg/dL (70-99); Potassium, Blood 3.4 mmol/L (3.5-5.5); Sodium, Blood 140.0 mmol/L (136-145); Thyroid Stimulating Hormone 8.15 uIU/mL (0.360-4.800); Total Protein, Blood 6.8 g/dL (6.4-8.2)
== END ==
LOC: LAB 17:00 → LAB SHORT 17:00
PROVIDERS: Student in an Organized Health Care Education/Training Program
DX: Z13.9 Encounter for screening, unspecified (principal)
CPT/HCPCS: 80053; 82105; 84443; 85025; 85610

== ENCOUNTER 2025-10-09 09:09 | Emergency (ER) | payer OTHER ==
[~2025-10-09] VITALS: Ht 195.6 cm; Wt 109.8 kg
[2025-10-09 09:57] LABS: BASOPHILS ABSOLUTE AUTO 0.03 K/mm3 (0.00-0.23); BASOPHILS PERCENT AUTO 0 % (0-2); EOSINOPHILS ABSOLUTE AUTO 0.09 K/mm3 (0.00-0.68); EOSINOPHILS PERCENT AUTO 1 % (0-6); Hematocrit 44.7 % (37.0-53.0); Hemoglobin 15.4 g/dL (13.5-17.5); IMMATURE GRAN ABSOLUTE AUTO 0.03 K/mm3 (0.00-0.10); IMMATURE GRAN PERCENT AUTO 0 % (0-1); LYMPHOCYTES ABSOLUTE AUTO 2.19 K/mm3 (0.84-5.20); LYMPHOCYTES PERCENT AUTO 29 % (21-46); MONOCYTES ABSOLUTE AUTO 0.69 K/mm3 (0.16-1.47); MONOCYTES PERCENT AUTO 9 % (4-13); Mean Corpuscular HGB Conc 34.5 g/dL (31.5-36.5); Mean Corpuscular Volume 110 fL (80-100); NEUTROPHILS ABSOLUTE AUTO 4.60 K/mm3 (1.96-9.15); NEUTROPHILS PERCENT AUTO 60 % (41-73); NRBC ABSOLUTE 0.00 K/mm3 (0.00-0.02); NRBC Auto 0.0 /100 WBC (0.0-0.2); Platelet Count 208 K/mm3 (150-400); RDW Coefficient Variation 14.9 % (11.7-14.2); RDW Standard Deviation 61.2 fL (35.1-46.3)
[2025-10-09 10:08] LABS: Alanine Aminotransfer (ALT/SGP 23.0 U/L (12-78); Albumin, Blood 3.0 g/dL (3.4-5.0); Albumin/Globulin Ratio 1.0 (0.8-1.8); Anion Gap 8.0 mmol/L (3-11); Aspartate Aminotrans (AST/SGOT 35.0 U/L (12-37); Bilirubin, Total 1.5 mg/dL (0.1-1.0); Blood Urea Nitrogen 19.0 mg/dL (8-24); CO2, Blood 31.0 mmol/L (21-32); Calcium, Blood 8.8 mg/dL (8.5-10.1); Chloride, Blood 101.0 mmol/L (98-108); Creatinine, Blood 1.23 mg/dL (0.60-1.20); Globulin, Blood 3.0 g/dL (2.2-4.0); Glucose, Blood 120.0 mg/dL (70-99); Potassium, Blood 3.3 mmol/L (3.5-5.5); Sodium, Blood 137.0 mmol/L (136-145); Total Protein, Blood 6.0 g/dL (6.4-8.2)
[2025-10-09] MEDS ORDERED: Metoprolol Tartrate 1 MG/ML 5 ML VIAL IV ONE ×2 (15:40→16:35)
[2025-10-09] MEDS ORDERED: LASIX20 M2 PO (16:34)
[2025-10-09] MEDS ORDERED: METOPROLOL TAR100 M4 PO (16:34)
[2025-10-09] MEDS ORDERED: POTCHL20ER PO (16:34)
[2025-10-09 16:52] VITALS: BP 128/84
== END 2025-10-09 16:51 | disposition home or self-care (01) ==
LOC: ER 09:09
PROVIDERS: Student in an Organized Health Care Education/Training Program
DX: I48.91 Unspecified atrial fibrillation (principal); E87.6 Hypokalemia; I11.0 Hypertensive heart disease with heart failure; I50.9 Heart failure, unspecified; Z87.891 Personal history of nicotine dependence; Z79.899 Other long term (current) drug therapy
CPT/HCPCS: 71046; 80053; 83880; 84484; 85025; 93005; 93010; 96374; 96376; 99285-25; A9270